=== PATIENT | female | born 1950 | race Caucasian/White ===

== ENCOUNTER 2017-06-14 10:23 | Emergency (ER) | payer OTHER, MEDICARE, BC ==
--- NOTE | 2017-06-14 23:49 | ER ---
Date of Service: 06/14/2017 SUBJECTIVE: The patient presents to the emergency room with complaints of laceration to her left index finger. The patient states that she was cutting up potatoes when she sustained a laceration to her finger. She states that she thinks that she needs sutures. PAST MEDICAL HISTORY: 1. Hypertension. 2. B12 deficiency. 3. Vitamin D deficiency. 4. Hypothyroidism. 5. Dyslipidemia. MEDICATIONS: 1. Potassium chloride. 2. Omeprazole. 3. Cozaar. 4. Levothyroxine. 5. [place]. 6. Ferrous sulfate. 7. Lexapro. 8. Vitamin B12. 9. Vitamin D3. 10.Coreg. 11.Calcium plus D. 12.Fosamax. ALLERGIES: NKDA. REVIEW OF SYSTEMS: Denies any numbness or tingling distal to the area of injury. Again, the laceration is isolated to her left index finger. PHYSICAL EXAMINATION: General: This is a 66-year-old female patient, who is in no acute distress. Vital Signs: Blood pressure is 142/73, pulse rate is 53, respiratory rate is 14, O2 saturations 97%. Skin: Warm, pink, and dry. Musculoskeletal: The patient has a very shallow, well-approximated, sub cm laceration to the pad of the distal portion of the left index finger. No trauma to the structures underlying the laceration. Range of motion is within normal limits to the distal portion of the digit. EMERGENCY ROOM COURSE: The finger was cleansed with chlorhexidine and normal saline. Dermabond was used to close the laceration. The patient tolerated this well. She remained stable under my care in the emergency room. ASSESSMENT: Subcentimeter laceration to distal portion of the distal phalanx. PLAN: She will be discharged. Keep the area dry for 24 hours. Return if there is any redness, swelling, or discharge to the area. All questions were answered. MWK: 06/14/2017 20:32:48 MODL: 06/14/2017 23:40:56 /[id number]
== END 2017-06-14 10:57 | disposition home or self-care (01) ==
LOC: VM.ED 10:23
DX: S61.211A Laceration without foreign body of left index finger without damage to nail, initial encounter (principal); I10 Essential (primary) hypertension; E03.9 Hypothyroidism, unspecified; E78.5 Hyperlipidemia, unspecified; W26.9XXA Contact with unspecified sharp object(s), initial encounter
CPT/HCPCS: 12011; 99282

== ENCOUNTER 2022-06-16 11:16 | Observation (INO) | payer MEDICARE, BC ==
[2022-06-16 11:55] LABS: ANION GAP 16.3 mmol/L (5-15); CHLORIDE,CL 101 mmol/L (98-107); SODIUM,NA 137 mmol/L (136-145)
[2022-06-16 11:56] LABS: ESTIMATED GFR 69 mL/min (>=60)
[2022-06-16] MEDS ORDERED: Sodium Chloride 0.9% 1,000 ML IV SCH (12:00)
[2022-06-16] MEDS ORDERED: Take Home: Cyclobenzaprine 10 MG Tab, 4 Tab Pack PO ONE (15:52)
[2022-06-16] MEDS ORDERED: Take Home: Acetaminophen/HYDROcodone 325-5 MG, 5 Tab Pack PO ONE (15:52)
[2022-06-16] MEDS ORDERED: Ondansetron 4 MG/2 ML SDV IV PRN (16:29)
[2022-06-16] MEDS ORDERED: Acetaminophen 325 MG Tab PO PRN (16:29)
[2022-06-16] MEDS ORDERED: Ondansetron 4 MG Tab.DIS PO PRN (16:29)
[2022-06-16] MEDS ORDERED: Sodium Chloride 0.9% 10 ML Syringe FLUSH PRN (16:29)
[2022-06-16] MEDS ORDERED: SIMETHICONE 125 MG PO PRN (18:32)
[2022-06-16] MEDS: Sodium Chloride 0.9% 1,000 ML IV SCH (20:37)
[2022-06-17] MEDS: Levothyroxine 75 MCG Tab PO SCH (06:58)
[2022-06-17 08:08] LABS: ANION GAP 14.1 mmol/L (5-15)
[2022-06-17] MEDS: Cyanocobalamin (Vitamin B12) 250 MCG Tab PO SCH (08:59)
[2022-06-17] MEDS: Losartan 50 MG Tab PO SCH (08:59)
[2022-06-17] MEDS: Aspirin 81 MG Tab.EC PO SCH (08:59)
[2022-06-17] MEDS: Potassium Chloride 10 MEQ Tab.ER PO SCH (09:00)
[2022-06-17] MEDS ORDERED: Omeprazole 20 MG Cap.CR PO SCH (09:00)
[2022-06-17] MEDS ORDERED: Non-Formulary Medication 1 Each (Bimatoprost [Lumigan 0.01% Ophth Soln] 2.5 ML Bottle) EYEBOTH SCH (09:00)
[2022-06-17] MEDS: Ferrous Sulfate 325 MG Tab PO SCH (09:00)
[2022-06-17] MEDS: Citalopram 20 MG Tab PO SCH (09:00)
[2022-06-17] MEDS: Calcium Carbonate/Vitamin D3 1250 MG-5 MCG Tab PO SCH (09:00)
[2022-06-17] MEDS: Cholecalciferol (Vitamin D3) 25 MCG Tab PO SCH (09:00)
[2022-06-17] MEDS: amLODIPine 5 MG Tab PO SCH (09:00)
[2022-06-17] MEDS: Magnesium Oxide 400 MG Tab PO SCH ×2 (10:24→19:59)
[2022-06-17] MEDS ORDERED: Iopamidol 755 Mg/ML 100 ML Bottle IVPUSH ONE (10:38)
[2022-06-17] MEDS: Sodium Chloride 0.9% 1,000 ML IV SCH (22:34)
[2022-06-18] MEDS ORDERED: Alendronate 70 MG Tab PO SCH (06:00)
[2022-06-18] MEDS: Levothyroxine 75 MCG Tab PO SCH (06:32)
[2022-06-18 06:59] LABS: ANION GAP 11.1 mmol/L (5-15)
[2022-06-18] MEDS: Calcium Carbonate/Vitamin D3 1250 MG-5 MCG Tab PO SCH (08:06)
[2022-06-18] MEDS: Losartan 50 MG Tab PO SCH (08:07)
[2022-06-18] MEDS: amLODIPine 5 MG Tab PO SCH (08:07)
[2022-06-18] MEDS: Magnesium Oxide 400 MG Tab PO SCH (08:07)
[2022-06-18] MEDS: Potassium Chloride 10 MEQ Tab.ER PO SCH (08:08)
[2022-06-18] MEDS: Aspirin 81 MG Tab.EC PO SCH (08:08)
[2022-06-18] MEDS: Cyanocobalamin (Vitamin B12) 250 MCG Tab PO SCH (08:08)
[2022-06-18] MEDS: Cholecalciferol (Vitamin D3) 25 MCG Tab PO SCH (08:08)
[2022-06-18] MEDS: Citalopram 20 MG Tab PO SCH (08:08)
[2022-06-18] MEDS: Ferrous Sulfate 325 MG Tab PO SCH (08:08)
[2022-06-18] MEDS ORDERED: Magnesium Sulfate/Water 4 GM in Premix Bag 1 BAG IV ONE (08:52)
[2022-06-18] MEDS ORDERED: BRIMONIDINE TARTRATE EYEBOTH SCH (09:00)
[2022-06-18] MEDS ORDERED: EYE EYEBOTH SCH (09:00)
[2022-06-18] MEDS ORDERED: TIMOLOL EYEBOTH SCH (09:00)
== END 2022-06-18 14:30 | disposition home or self-care (01) ==
LOC: VM.ED 11:16 → VM.MS 16:11
PROVIDERS: ADMIT Physician Assistant Medical; ATTEND Physician Assistant Medical
DX: R00.1 Bradycardia, unspecified (principal); R55 Syncope and collapse; E61.2 Magnesium deficiency; E03.9 Hypothyroidism, unspecified; F32.A Depression, unspecified; I10 Essential (primary) hypertension; E78.00 Pure hypercholesterolemia, unspecified; M19.90 Unspecified osteoarthritis, unspecified site; Z79.890 Hormone replacement therapy; Z79.899 Other long term (current) drug therapy; Z79.82 Long term (current) use of aspirin; Z87.891 Personal history of nicotine dependence
CPT/HCPCS: 36415; 70450; 70496; 71046; 80048; 80053; 82550; 83615; 83735; 84484; 85025; 85379; 86140; 93005; 93010; 96360; 96361; 96374; 99217; 99220; 99225; 99285-25; A9270-GY; G0378; J3475; J7030; Q9967

== ENCOUNTER 2022-09-09 17:24 | Emergency (ER) | payer MEDICARE, BC ==
[2022-09-09] MEDS ORDERED: Take Home: Sulfamethoxazole/Trimethoprim 800-160 MG Tab, 2 Tab Pack PO ONE (18:27)
== END 2022-09-09 18:36 | disposition home or self-care (01) ==
LOC: VM.ED 17:24
DX: L03.115 Cellulitis of right lower limb (principal); E78.00 Pure hypercholesterolemia, unspecified; I10 Essential (primary) hypertension; E03.9 Hypothyroidism, unspecified; Z88.0 Allergy status to penicillin; Z88.8 Allergy status to other drugs, medicaments and biological substances; Z79.82 Long term (current) use of aspirin; Z79.899 Other long term (current) drug therapy
CPT/HCPCS: 36415; 84550; 85025; 99283; A9270-GY

== ENCOUNTER 2024-09-18 04:09 | Emergency (ER) | payer MEDICARE, OTHER ==
[2024-09-18 04:24] LABS: BASOPHILS PERCENT AUTO 0.2 % (0.2-1.2); EOSINOPHILS ABSOLUTE AUTO 0.1 x10^3/uL (0.0-0.5); EOSINOPHILS PERCENT AUTO 0.9 % (0.0-4.0); HEMATOCRIT 36.5 % (33.0-47.0); HEMOGLOBIN 12.7 g/dL (12.0-16.0); IMMATURE GRAN ABSOLUTE AUTO 0.03 x10^3/uL (0.00-0.07); LYMPHOCYTES PERCENT AUTO 7.8 % (25.0-50.0); MEAN CORPUSCULAR HEMOGLOBIN 30.5 pg (26.0-32.0); MEAN CORPUSCULAR HGB CONC 34.8 g/dL (32.0-36.0); MEAN CORPUSCULAR VOLUME 87.7 fL (78.0-93.0); MONOCYTES ABSOLUTE AUTO 0.9 x10^3/uL (0.0-0.8); MONOCYTES PERCENT AUTO 7.1 % (2.0-11.0); NEUTROPHILS ABSOLUTE AUTO 10.8 x10^3/uL (1.8-7.7); NEUTROPHILS PERCENT AUTO 83.8 % (50.0-80.0); PLATELET COUNT,PLT 194 x10^3/uL (130-400); RED BLOOD CELL COUNT 4.16 x10^6/uL (4.00-5.50); WHITE BLOOD CELL COUNT,WBC 12.9 x10^3/uL (4.0-10.0)
[2024-09-18 04:27] LABS: BILIRUBIN,URINE NEGATIVE (NEGATIVE); COLOR,URINE DARK YELLOW (YELLOW); GLUCOSE,URINE NEGATIVE (NEGATIVE); KETONES,URINE NEGATIVE (NEGATIVE); LEUKOCYTE ESTERASE,URINE TRACE (NEGATIVE); NITRITE,URINE NEGATIVE (NEGATIVE); OCCULT BLOOD,URINE TRACE-INTACT (NEGATIVE); PROTEIN,URINE NEGATIVE (NEGATIVE); UROBILINOGEN,URINE 0.2 EU/dL (0.2)
[2024-09-18 04:36] LABS: APPEARANCE,URINE SLIGHTLY CLOUDY (CLEAR)
[2024-09-18 04:37] LABS: BACTERIA,URINE FEW /HPF (NOT SEEN); MUCUS,URINE OCCASIONAL /LPF (NOT SEEN); RBC,URINE 0-5 /HPF (NOT SEEN); SQUAMOUS EPITHELIAL CELLS,UR FEW /HPF (NOT SEEN)
[2024-09-18 04:44] LABS: A/G RATIO 1.06; ALANINE AMINOTRANSFERASE,ALT 28 U/L (14-59); ALBUMIN 3.4 g/dL (3.4-5.0); ALKALINE PHOSPHATASE 80 U/L (46-116); ASPARTATE AMNIOTRANSFERASE,AST 22 U/L (15-37); BILIRUBIN TOTAL 0.5 mg/dL (0.2-1.0); BLOOD UREA NITROGEN,BUN 16 mg/dL (7-18); CALCIUM 8.6 mg/dL (8.5-10.1); CARBON DIOXIDE,CO2 24 mmol/L (21-32); CHLORIDE,CL 106 mmol/L (98-107); CREATININE 0.8 mg/dL (0.55-1.02); GLUCOSE RANDOM 195 mg/dL (70-99); POTASSIUM,K 3.5 mmol/L (3.5-5.1); PROTEIN TOTAL,TP 6.6 g/dL (6.4-8.2); SODIUM,NA 141 mmol/L (136-145)
[2024-09-18 04:45] LABS: ANION GAP 14.5 mmol/L (5-15); ESTIMATED GFR 78 mL/min (>=60)
[2024-09-18] MEDS: cefTRIAXone 1 GM, Lidocaine 1% 2.1 ML IM ONE (04:58)
== END 2024-09-18 05:05 | disposition home or self-care (01) ==
LOC: VM.ED 04:09
DX: R19.7 Diarrhea, unspecified (principal); N39.0 Urinary tract infection, site not specified; I10 Essential (primary) hypertension; E78.00 Pure hypercholesterolemia, unspecified; E03.9 Hypothyroidism, unspecified; Z88.0 Allergy status to penicillin; Z88.8 Allergy status to other drugs, medicaments and biological substances; Z79.82 Long term (current) use of aspirin; Z79.890 Hormone replacement therapy; Z79.899 Other long term (current) drug therapy
CPT/HCPCS: 36415; 80053; 81001; 85025; 87086; 87088; 87186; 96372; 99284; J0696; J3490